=== PATIENT | male | born 1995 | race Caucasian/White ===

== ENCOUNTER 2021-04-03 11:48 | Emergency (ER) | payer MEDICAID, OTHER ==
[~2021-04-03] VITALS: Ht 182.9 cm; Wt 68.0 kg
[~2021-04-03 11:48] MED LIST: COROTSUS OT; IBUP-1984 PO; NO HOME MEDS; PSEU-225 PO; ZOF4T PO
[2021-04-03 11:51] VITALS: BP 144/84
--- NOTE | 2021-04-03 11:59 | NUR ---
PT REPORTS UTD WITH TETANUS VACCINE.
[2021-04-03] MEDS ORDERED: ceFAZolin 1GM/D5W- ADD-VANTAGE 50 ML IV ONE (12:35)
[2021-04-03] MEDS ORDERED: morphine 4 MG/ML inj SYRINge IV ONE (13:00)
[2021-04-03] MEDS ORDERED: LIDOcaine 1% W/epiNEPHrine 1:200,000 10ml vial IJ ONE (13:00)
[2021-04-03] MEDS ORDERED: ketorolac tromethamine 15mg/ml inj. IV ONE (13:00)
[2021-04-03] MEDS ORDERED: LIDOcaine 1% W/epiNEPHrine 1:100,000 20ml vial IJ ONE (13:30)
[2021-04-03] MEDS ORDERED: HYDR-3965 PO (14:28)
[2021-04-03] MEDS ORDERED: CEPH-585 PO (14:28)
== END 2021-04-03 18:04 | disposition home or self-care (01) ==
LOC: ER 11:49
DX: S61.432A Puncture wound without foreign body of left hand, initial encounter (principal); F17.200 Nicotine dependence, unspecified, uncomplicated; Z72.89 Other problems related to lifestyle; Z79.2 Long term (current) use of antibiotics; Z79.899 Other long term (current) drug therapy; X58.XXXA Exposure to other specified factors, initial encounter; Y93.89 Activity, other specified; Y92.89 Other specified places as the place of occurrence of the external cause; Y99.8 Other external cause status
CPT/HCPCS: 29125; 73130; 96365; 96375; 99284; J0690; J1885; J2270; J3490

== ENCOUNTER 2021-04-07 08:00 | Emergency (ER) | payer OTHER ==
[~2021-04-07] VITALS: Ht 182.9 cm; Wt 68.2 kg
[~2021-04-07 08:00] MED LIST changes: +CEPH-585 PO; +HYDR-3965 PO
[2021-04-07 08:10] VITALS: BP 137/70
== END 2021-04-07 08:50 | disposition home or self-care (01) ==
LOC: ER 08:00
DX: S61.432D Puncture wound without foreign body of left hand, subsequent encounter (principal); Z72.89 Other problems related to lifestyle; Z79.2 Long term (current) use of antibiotics; Z79.899 Other long term (current) drug therapy; X58.XXXD Exposure to other specified factors, subsequent encounter
CPT/HCPCS: 99281